=== PATIENT | female | born 1970 | race Caucasian/White ===

== ENCOUNTER 2020-03-21 15:56 | Observation (INO) ==
[2020-03-21] MEDS ORDERED: Ondansetron 4 MG/2 ML VIAL IVP PRN (18:06)
[2020-03-21] MEDS ORDERED: Naloxone 0.4 MG/ML INJ IVP PRN (18:06)
[2020-03-21] MEDS ORDERED: Ketorolac 30 MG/ML VIAL IVP PRN (18:06)
[2020-03-21] MEDS ORDERED: 0.9 % Sodium Chloride 1,000 ML IVC SCH (19:00)
[2020-03-22 07:25] LABS: Hematocrit 35.8 % (35.3-44.9); Hemoglobin 11.3 g/dL (11.5-15.4); Mean Corpuscular HGB Conc 31.6 g/dL (31.6-35.5); Mean Corpuscular Hemoglobin 30.5 pg (28.0-33.3); Mean Corpuscular Volume 96.8 fL (83.0-100.0); Mean Platelet Volume 11.5 fL (9.4-12.4); Platelet Count 236 K/mcL (140-400); Red Cell Distribution Width 13.3 % (11.5-14.5); White Blood Count 10.2 K/mcL (4.3-11.1)
[2020-03-22 07:27] LABS: INR 1.1; Prothrombin Time 13.2 Seconds (9.4-12.1)
[2020-03-22 07:47] LABS: Magnesium 1.9 mg/dL (1.6-2.6); Phosphorous 2.8 mg/dL (2.7-4.5); Potassium 3.8 mEq/L (3.5-5.1)
[2020-03-22] MEDS ORDERED: cefTRIAXone 1,000 MG in 0.9 % Sodium Chloride Mini Bag 100 ML IVPB SCH (07:57)
[2020-03-22] MEDS ORDERED: *HR* Propofol 200 MG/20 ML VIAL IVP ONE (08:34)
[2020-03-22] MEDS ORDERED: Lidocaine -MPF 2% 2 ML VIAL ONE (08:34)
[2020-03-22] MEDS ORDERED: Ondansetron 4 MG/2 ML VIAL ONE (08:34)
[2020-03-22] MEDS ORDERED: *HR* FentaNYL (PF) 100 MCG/2 ML VIAL ONE (08:34)
[2020-03-22] MEDS ORDERED: *HR* HYDROmorphone PF 0.5 MG/0.5 ML SYRINGE IVP PRN (10:17)
[2020-03-22] MEDS ORDERED: *HR* OxyCODONE Immed Rel 5 MG TABLET PO PRN (10:17)
[2020-03-22] MEDS ORDERED: Isovue-300 50ML VIAL ONE (10:33)
[2020-03-22] MEDS ORDERED: Naloxone 0.4 MG/ML INJ IVP PRN (12:24)
[2020-03-22] MEDS ORDERED: Ondansetron 4 MG/2 ML VIAL IVP PRN (12:24)
[2020-03-22 15:43] VITALS: BP 118/76
[2020-03-23] MEDS ORDERED: cefTRIAXone 1,000 MG in 0.9 % Sodium Chloride Mini Bag 100 ML IVPB SCH (09:00)
[2020-03-27 07:17] LABS: Calculi Mass 16 mg
== END 2020-03-22 16:23 | disposition home or self-care (01) ==
LOC: 3ANU → SUATTDRO 17:43
PROVIDERS: ADMIT Internal Medicine; ATTEND Internal Medicine